=== PATIENT | male | born 1980 | race Hispanic/Latino ===

== ENCOUNTER 2020-05-08 16:59 | Emergency (ER) | payer OTHER ==
[~2020-05-08] VITALS: Ht 154.9 cm; Wt 64.0 kg
[2020-05-08 19:15] VITALS: BP 137/89
== END 2020-05-08 19:15 | disposition home or self-care (01) | DRG 914 ==
LOC: ED 16:59
DX: S39.82XA Other specified injuries of lower back, initial encounter (principal); X50.0XXA Overexertion from strenuous movement or load, initial encounter; Y93.H2 Activity, gardening and landscaping; Y92.89 Other specified places as the place of occurrence of the external cause; Y99.0 Civilian activity done for income or pay

== ENCOUNTER 2022-07-23 03:29 | Emergency (ER) | payer OTHER ==
[~2022-07-23] VITALS: Ht 172.7 cm; Wt 71.8 kg
[2022-07-23] MEDS ORDERED: CEPHALEXIN500 MG PO (04:53)
[2022-07-23 04:58] VITALS: BP 109/78
== END 2022-07-23 05:20 | DRG 605 ==
LOC: ED 03:29
PROC: 0HQNXZZ Repair Left Foot Skin, External Approach (ICD-10-PCS; principal; 2022-07-23)
DX: S91.312A Laceration without foreign body, left foot, initial encounter (principal); Y33.XXXA Other specified events, undetermined intent, initial encounter